=== PATIENT | female | born 1960 | race Caucasian/White ===

== ENCOUNTER 2018-09-01 14:42 | Emergency (ER) | payer OTHER ==
[~2018-09-01] VITALS: Ht 165.1 cm; Wt 71.7 kg
[2018-09-01] MEDS ORDERED: Norco 5-325 Ta1 EACH PO (15:41)
== END 2018-09-01 15:57 | disposition home or self-care (01) ==
LOC: ER 14:42
DX: S52.501A Unspecified fracture of the lower end of right radius, initial encounter for closed fracture (principal); V80.010A Animal-rider injured by fall from or being thrown from horse in noncollision accident, initial encounter
CPT/HCPCS: 29125; 73110; 96372; 99283-25; J1885